=== PATIENT | female | born 1950 | race Caucasian/White ===

== ENCOUNTER 2017-10-05 22:11 | Inpatient (IN) | payer OTHER ==
[~2017-10-05] VITALS: Ht 154.9 cm; Wt 71.0 kg
[~2017-10-05 22:11] MED LIST: ADVAIR HFA120 INHALA IH; ANORO ELLIPTA1 EACH IH; ASPIRIN EC325 MG PO; CALCIUM 600 MG1 EACH PO; CELECOXIB200 MG PO; ENDOCET 5-3251 EACH PO; FERROUS SULFAT325 MG PO; HYDROCHLOROTHIA25 MG PO; IRON325 M1 PO; NEURONTIN300 MG PO; PRINIVIL20 MG PO; SPIRIVA RESPIMAT4 GM IH; VITAMIN D-32000 UNI2 PO
[2017-10-06 10:17] VITALS: BP 152/70
[2017-10-06 15:55] LABS: HEMATOCRIT 35.2 % (36.0-46.0); HEMOGLOBIN 11.6 G/DL (11.9-15.5); MCH 30.4 PG (29.0-34.0); MCV 92.4 FL (83-99); PLATELET COUNT 159 K/uL (156-360); RBC DIS.WIDTH-CV 12.4 % (11.8-14.6); RBC DIS.WIDTH-SD 41.9 % (39-53); RED BLOOD COUNT 3.81 M/uL (3.80-5.20); WHITE BLOOD COUNT 5.3 K/uL (4.1-10.2)
[2017-10-06 16:46] VITALS: BP 118/65
[2017-10-06 19:51] VITALS: BP 132/60
[2017-10-07] VITALS: BP 80/47
[2017-10-07 04:09] VITALS: BP 104/58
[2017-10-07 05:50] LABS: HEMATOCRIT 32.3 % (36.0-46.0); HEMOGLOBIN 10.5 G/DL (11.9-15.5); MCV 92.6 FL (83-99)
[2017-10-07 06:30] LABS: CHLORIDE 102 MEQ/L (99-109); CREATININE 0.9 MG/DL (0.6-1.3); GFR ESTIMATE (CALCULATED) > 59 mL/min/; GLUCOSE 128 mg/dL (70-99); POTASSIUM 4.2 MEQ/L (3.7-5.4); SODIUM 139 MEQ/L (136-147); UREA NITROGEN (BUN) 11 mg/dL (9-23)
[2017-10-07 07:37] VITALS: BP 106/54
[2017-10-07 12:21] VITALS: BP 113/57
[2017-10-07 15:50] VITALS: BP 145/63
[2017-10-07 20:35] VITALS: BP 139/63
[2017-10-08] VITALS (8 sets, daily range): BP systolic 116–149; BP diastolic 55–81
[2017-10-08 05:20] LABS: HEMOGLOBIN 10.3 G/DL (11.9-15.5); MCV 92.5 FL (83-99)
[2017-10-08] MEDS ORDERED: DOCUSATE SODIU100 MG PO (09:06)
[2017-10-08] MEDS ORDERED: HYDROCODON-ACE1 EAC7 PO (09:07)
[2017-10-08] MEDS ORDERED: LOVENOX40 MG/0.4 SC (09:07)
[2017-10-09 08:09] VITALS: BP 102/54
== END 2017-10-09 13:34 | DRG 470 ==
LOC: ENRESERV 22:11 → 2SOUTH 10-06 09:32 → 3WEST 10-06 09:32 → 2SOUTH 10-06 12:25 → ENRESERV 10-06 12:38 → 2SOUTH 10-06 14:42 → 3WEST 10-06 16:31 → ENRESERV 10-08 07:21 → 3EAST 10-08 17:45
PROVIDERS: Orthopaedic Surgery
PROC: 0SRC0J9 Replacement of Right Knee Joint with Synthetic Substitute, Cemented, Open Approach (ICD-10-PCS; principal; 2017-10-06)
DX: M17.11 Unilateral primary osteoarthritis, right knee (principal); Z96.652 Presence of left artificial knee joint; M41.9 Scoliosis, unspecified; Z86.12 Personal history of poliomyelitis; I10 Essential (primary) hypertension; J44.9 Chronic obstructive pulmonary disease, unspecified
CPT/HCPCS: 71045; 73560; 80048; 85014; 85018; 85027; 94640; 94640 76; 94799; C1713; J0131; J0690; J1650; J2250; J2405; J2795; J7050